=== PATIENT | female | born 1975 | race Two or more races ===

== ENCOUNTER 2019-06-05 13:34 | Emergency (ER) | payer MEDICAID ==
[~2019-06-05] VITALS: Ht 152.4 cm; Wt 85.7 kg
--- NOTE | 2019-06-05 14:08 | NUR ---
TOOK OVER PT CARE. PT AAOX4. AMBULATORY. C/O SORETHROAT AND COUGH X 3 DAYS. INF AND STREP SENT TO LAB. AWAITING FOR OTHER ORDERS. WILL CONTINUE TO MONITOR.
[2019-06-05 15:19] VITALS: BP 124/72
--- NOTE | 2019-06-05 15:19 | NUR ---
Patient discharged to home in stable condition. Written and verbal after care instructions given. Patient verbalizes understanding of instruction and RX in maltese. pt ambulatory with a steady gait. vss.
== END 2019-06-05 15:20 | disposition home or self-care (01) ==
LOC: ER 13:34
DX: J18.9 Pneumonia, unspecified organism (principal); I10 Essential (primary) hypertension; Z98.890 Other specified postprocedural states
CPT/HCPCS: 71045-TC; 86403-TC; 87070-TC

== ENCOUNTER 2021-10-06 09:59 | Emergency (ER) | payer MEDICAID ==
[~2021-10-06] VITALS: Ht 160 cm; Wt 102.1 kg
--- NOTE | 2021-10-06 10:02 | NUR ---
BIBS C/O COUGH x 3DAYS AND WHITE SPOTS IN THE THROAT NOTICED 1WK AGO. PT IS AFEBRILE, VITALS ARE WITHIN NORMAL LIMIT. NO RESPIRATORY DISTRESS NOTED.
--- NOTE | 2021-10-06 10:46 | NUR ---
RAPID STREP SWAB DONE AND SENT TO LAB
--- NOTE | 2021-10-06 11:20 | NUR ---
Patient discharged to home in stable condition. Written and verbal after care instructions given. Patient verbalizes understanding of instruction.
[2021-10-06] MEDS ORDERED: DEXAMETHASONE SOD PHOSPHATE 10 MG/ML VIAL ONE (12:39)
[2021-10-06] MEDS ORDERED: PENI500T PO (12:41)
[2021-10-06] MEDS ORDERED: DEXAMETHASONE SOD PHOSPHATE 10 MG/ML VIAL IM ONE (13:00)
[2021-10-06 13:10] VITALS: BP 129/78
== END 2021-10-06 13:01 | disposition home or self-care (01) ==
LOC: ER 10:01
DX: J02.9 Acute pharyngitis, unspecified (principal); I10 Essential (primary) hypertension; Z86.69 Personal history of other diseases of the nervous system and sense organs; Z90.49 Acquired absence of other specified parts of digestive tract; Z79.899 Other long term (current) drug therapy
CPT/HCPCS: 87070; 87880; 96372; 99283; J1100; 86403-TC

== ENCOUNTER 2022-10-06 17:24 | Emergency (ER) | payer MEDICAID ==
[~2022-10-06] VITALS: Ht 162.6 cm; Wt 103.0 kg
[~2022-10-06 17:24] MED LIST: PENI500T PO
[2022-10-06 17:56] VITALS: BP 137/84
[2022-10-06] MEDS ORDERED: PROM118S5 PO (19:03)
[2022-10-06] MEDS ORDERED: AZIT250T13 PO (19:03)
[2022-10-06] MEDS ORDERED: IBUP-1955 PO (19:03)
--- NOTE | 2022-10-06 19:21 | NUR ---
Patient discharged to home in stable condition, ambulating. Written and verbal after care instructions given. Patient verbalizes understanding of instruction.
== END 2022-10-06 19:21 | disposition home or self-care (01) ==
LOC: ER 17:26
DX: J40 Bronchitis, not specified as acute or chronic (principal); I10 Essential (primary) hypertension
CPT/HCPCS: 71045-TC

== ENCOUNTER 2023-01-22 10:51 | Emergency (ER) | payer MEDICAID ==
[~2023-01-22] VITALS: Ht 162.6 cm; Wt 94.3 kg
[~2023-01-22 10:51] MED LIST changes: +AZIT250T13 PO; +IBUP-1955 PO; +PROM118S5 PO
[2023-01-22 11:01] VITALS: BP 148/78; TEMP 99.5
[2023-01-22] MEDS ORDERED: AMOX/CLAVULANATE 875 MG TABLET ONE (11:23)
[2023-01-22] MEDS ORDERED: IBUPROFEN 400 MG TABLET ONE (11:23)
[2023-01-22] MEDS ORDERED: AMOX-430 PO (11:26)
[2023-01-22] MEDS ORDERED: AMOX/CLAVULANATE 875 MG TABLET PO ONE (11:30)
[2023-01-22] MEDS ORDERED: IBUPROFEN 400 MG TABLET PO ONE (11:30)
[2023-01-22 11:42] VITALS: O2SAT 99
== END 2023-01-22 11:43 | disposition home or self-care (01) ==
LOC: ER 11:04
DX: H66.91 Otitis media, unspecified, right ear (principal); I10 Essential (primary) hypertension

== ENCOUNTER 2024-03-18 09:46 | Emergency (ER) | payer MEDICAID ==
[~2024-03-18] VITALS: Ht 157.5 cm; Wt 105.2 kg
[~2024-03-18 09:46] MED LIST changes: +AMOX-430 PO
[2024-03-18 10:36] VITALS: TEMP 98.6
[2024-03-18] MEDS ORDERED: AMLO-213 PO (10:48)
[2024-03-18] MEDS ORDERED: AMLODIPINE BESYLATE 10 MG TABLET ONE (10:50)
[2024-03-18] MEDS: AMLODIPINE BESYLATE 5 MG TABLET PO ONE (10:53)
[2024-03-18 11:07] VITALS: BP 182/91; O2SAT 100
== END 2024-03-18 11:07 | disposition home or self-care (01) ==
LOC: ER 09:46
DX: I10 Essential (primary) hypertension (principal); R51.9 Headache, unspecified; Z86.69 Personal history of other diseases of the nervous system and sense organs; Z85.6 Personal history of leukemia